=== PATIENT | female | born 1955 | race Hispanic/Latino ===

== ENCOUNTER → 2019-06-13 | Outpatient (CLI) | payer OTHER ==
--- NOTE | 2019-06-13 21:08 | Diagnostic Imaging Report ---
Ventilation/perfusion lung scan Clinical Information: 63 F with chest pain and SOB Comparison: None Discussion: Xenon-133 gas 10 mCi was administered via inhalation. Dynamic images of the lungs in the posterior projection were obtained through single breath, equilibrium, and washout phases. Initially, tracer activity is diffusely decreased in the left lung compared to the right lung. No tracer is seen in the apex of the left lung. There are no other segmental ventilation defects. Washout of tracer is diffusely delayed with diffuse air trapping in both lungs, greater on the left than the right. Perfusion images of the lungs were obtained in multiple projections following intravenous administration of approximately 5.5 mCi of Tc-99m MAA. Tracer activity is diffusely decreased throughout the left lung compared to the right lung. Distribution of tracer is very irregular throughout both lungs, worse in the left lung compared to the right lung, but there are no segmental perfusion defects of any size in either lung. The left lung apex is perfused. The cardiomediastinal silhouette is unremarkable. Impression: 1. Scan findings represent a LOW probability for acute pulmonary embolic disease based on the PIOPED II criteria. This probability is assigned because the ventilation and perfusion images are well-matched except for the lung apex that is decreased on ventilation but no perfusion. 2. Scan findings represent diffuse parenchymal and obstructive lung disease. The obstructive airway disease is more severe in the left lung than the right lung. Obstruction of airway accounts for the ventilation defect in the left apex. Correlative imaging is needed to further characterize the extent of parenchymal and obstructive lung disease. Signed by: Dr. Shannan Bowman M.D. on 06/13/2019 9:05 PM
== END ==
LOC: NM 15:14
PROVIDERS: ATTEND Internal Medicine Critical Care Medicine
DX: I26.99 Other pulmonary embolism without acute cor pulmonale (principal)
CPT/HCPCS: 78582; A9540; A9558